=== PATIENT | female | born 1990 | race Caucasian/White ===

== ENCOUNTER → 2018-03-06 11:39 | Outpatient (CLI) | payer OTHER, SELFPAY ==
--- NOTE | 2018-03-06 | DI.CT.S_ITS ---
PROCEDURE: CT LE RT WO CON INDICATIONS: RIGHT ANKLE PAIN AND FRACTURE TECHNIQUE: Noncontrast 1-1.5 mm axial sections acquired from above the tibiotalar joint to the bottom of the calcaneus, with coronal and sagittal reformats. COMPARISON: None. FINDINGS: Image quality: Excellent. Comminuted fracture of the tibial plafond which extends to the posterior malleolus as well as the medial malleolus. There is articular surface incongruity with approximately 3 mm of cortical step-off and up to 2 mm of diastasis. Fracture line appears to extend to the distal tibiofibular syndesmosis however no definite widening of the syndesmotic interval. Lateral malleolus appears intact. The talar dome appears intact. There is circumferential hindfoot subcutaneous soft tissue swelling. Visualized tendons appear within normal limits. IMPRESSION: Severely comminuted distal tibial intra-articular fracture with extension to the medial and posterior malleolus. Incongruity of the distal tibial articular surface as above. Dictated by: Terry Bai M.D. on 03/06/2018 at 12:09 Approved by: Terry Bai M.D. on 03/06/2018 at 12:16
== END ==
PROVIDERS: PCP Orthopaedic Surgery Foot and Ankle Surgery; Visit Provider Orthopaedic Surgery Foot and Ankle Surgery
DX: S82.391A Other fracture of lower end of right tibia, initial encounter for closed fracture (principal)
CPT/HCPCS: 73700

== ENCOUNTER 2018-03-11 08:29 | Day surgery (SDC) | payer OTHER, SELFPAY ==
[2018-03-07 13:54] VITALS: BMI 22.2
[2018-03-11] VITALS (19 sets, daily range): BP systolic 94–148; BP diastolic 45–88; PULSE 76–104; RESP 12–26; TEMP 36.1–36.8; O2SAT 90–100; BMI 22.2
--- NOTE | 2018-03-11 08:38 | PM.PREOP ---
Pre-operative Note Interval Note Pre-op Check: History & Physical Reviewed by Physician H&P completed within 30 days and has changed as indicated here:: no changes, appropriate for scheduled surgery
[2018-03-11] MEDS: LACTATED RINGERS 1,000 ML 42 ML IV ×2 (09:07→15:02)
[2018-03-11] MEDS: fentaNYL 100 MCG/2 ML INJ 50 MCG IV ×3 (09:22→09:41)
[2018-03-11] MEDS: MIDAZOLAM 2 MG/2 ML VIAL IV ×4 (09:23→13:56)
[2018-03-11] MEDS: CEFAZOLIN 2 GM/100 ML FROZ.PIGGY IV (09:55)
--- NOTE | 2018-03-11 10:34 | SUR.OPER ---
Prone on padded OR bed, head in lateral position with pillow under chest for support, gel body rolls, gel pad under knees, bump under lower legs, toes free of pressure, arms secured on padded arm boards at <90 degrees abduction. Taped non-operable leg.
--- NOTE | 2018-03-11 12:00 | DI.RAD.S_ITS ---
PROCEDURE: XR ANKLE RT MIN 3V INDICATIONS: INNER OP ANKLE PICTURES TECHNIQUE: 13 views of the ankle were acquired. COMPARISON: None. FINDINGS: 13 spot fluoroscopic intraoperative views demonstrating plate and screw fixation of posterior and medial malleolar fractures. There is expected intraoperative alignment. Dictated by: Terry Bai M.D. on 03/11/2018 at 15:44 Approved by: Terry Bai M.D. on 03/11/2018 at 15:45
--- NOTE | 2018-03-11 12:36 | DI.RAD.S_ITS ---
PROCEDURE: XR ANKLE RT MIN 3V INDICATIONS: RIGHT ANKLE REPAIR TECHNIQUE: 4 views of the ankle were acquired. COMPARISON: [facility], CT, CT LE RT WO CON, 03/06/2018, 11:41. [facility] [place], CR, XR ANKLE 3 VIEWS WEIGHT BEARING LEFT, 03/06/2018, 9:54. FINDINGS: Bones: Plate and screw fixation of the posterior and medial malleolus. There is postoperative alignment No suspicious bony lesions. Soft tissues: No tibiotalar joint effusion. Achilles tendon appears normal. Skin shefali noted. IMPRESSION: Plate and screw fixation of the posterior and medial malleolar fractures in expected postoperative alignment. Dictated by: Terry Bai M.D. on 03/11/2018 at 14:50 Approved by: Terry Bai M.D. on 03/11/2018 at 14:55
[2018-03-11] MEDS: ACETAMINOPHEN IV 1,000 MG/100 ML VIAL 400 MG IV (12:41)
[2018-03-11] MEDS: BUPIVACAINE 0.25% W/ EPI 50 ML VIAL INJ (12:42)
--- NOTE | 2018-03-11 13:31 | P.OP_ITS ---
Operative Date/Time/Diagnoses - Date of procedure: 03/11/18 Time of procedure: 10:00 Pre-op diagnosis: 1. Right ankle Maisonneuve fracture closed S82.861a 2. Posterior malleolus fracture displaced, right S82.391a 3. Medial malleolus fracture, right, displaced S82. [id number] Post-op diagnosis: same Procedure & Clinicians Procedure: 1. Open reduction internal fixation right posterior malleolus fracture. CPT 99668 2. Open reduction internal fixation medial malleolus fracture, right CPT code 75427 3. Closed treatment proximal fibula fracture right CPT code 33229 This procedure was performed using the #22 modifier. Due to the need for prone positioning, dual posterior approaches, the surgery took approximately twice as long as a standard ankle fracture Same procedure as scheduled: Yes Indications: The patient is a 28-year-old female that sustained an injury at work on March 03. She stepped on a soccer ball and twisted her right ankle and heard a pop and was unable to weightbear. She was found to have a plantar flexion variant ankle fracture with a proximal fibular Maisonneuve component and a posterior malleolus fracture with posterior lateral and posterior medial fragments extending into the medial malleolus. There was posterior medial impaction and joint incongruity. The patient was indicated for operative treatment to restore joint congruity to reduce the risk of posttraumatic arthritis restore alignment and talar stability within the mortise. The risks and benefits of the procedure have been discussed with the patient even opportunity to ask questions. The risks of surgery include but are not limited to infection, malunion, nonunion, persistence of pain, damage to nerves and blood vessels, posttraumatic arthritis, DVT, PE, cardiopulmonary complications and . The patient expressed a thorough understanding of the risks and benefits of surgery and has elected to proceed. Consent was signed in the office today. Surgeon: [facility] [employer] Member: Lisa Mckeon'Brien Anesthesia Type: General and Peripheral nerve block Operative Notes Findings: Posterior lateral incision was made. An unstable posterior lateral posterior malleolus fracture was encountered. Posterior tib fib ligaments were intact at the lateral aspect of the fracture fragment. This was mobilized and booked open to expose the displaced posterior medial fragment as well as posterior medial joint comminution. Posterior medial approach was then made to better expose the medial aspect of the posterior medial fragment. The posterior medial fragment was mobilized the articular comminution was reduced and the posterior medial fragment was pinned in place and then fixed with a independent 4 0 cannulated lag screw with a washer. Posterior lateral fragment was then reduced and fixed with a 4 0 cannulated lag screw through a 3 hole 1/3 tubular plate and 3 5 cortical screws were then placed in antiglide fashion. Additional 3 hole 2 7 plate was placed at the medial apex of the posterior medial fragment in an antiglide fashion. Care was taken to avoid hardware prominence near the groove for the posterior tibialis tendon. The syndesmosis was stressed under live fluoroscopy with external rotation and a cotton test and was found to be stable after fixation of the posterior lateral posterior malleolus fragment. No additional fixation was placed. Closure Type: primary Specimen(s): none sent Implants & Drains: synthes small frag 3 hole 1/3 tubular plate, 3.5 cortical screws, 4.0 cannulated cancellous lag screws Synthes mini frag 2.7 3 hole plate, 2.7 cortical screws Applied: implant(s) Estimated Blood Loss (mL): 25 Blood products transfused: none Tourniquet time (min): 120 Procedure in detail: The patient has an unstable and displaced right ankle fracture and was indicated for surgical reduction and stabilization. The patient was counseled regarding the rationale for this and the risks of surgery. The risks include infection, bleeding, damage to nerves and blood vessels, or tendons, wound dehiscence, malunion, nonunion, persistence of pain, DVT, PE, inability to return to her desired level of function, hardware breakage or prominence, generalized dissatisfaction with the procedure, need for additional procedures, cardiopulmonary complications and . The patient expressed understanding of all the risks and elected to proceed. Consent was signed in the office. Patient understands that recovery is variable and may require up to a 1 year. The patient also understands that it is critical to strictly elevate the operative leg for the 1st 2 weeks after surgery to control swelling and pain. The patient was counseled that no way will be allowed on the surgical leg for approximately 6 weeks or until the patient is instructed that it is safe to initiate weight-bearing. The patient expressed full understanding of all these issues would like to proceed with surgery. The patient was additionally counseled on cessation of all nicotine products to promote bone and wound healing. DVT prophylaxis was discussed and will be completed with 325 mg aspirin starting postoperative day 1 x 6wks. Procedure in detail: In the preoperative holding area, the appropriate limb and sites were marked, consent was again reviewed with the patient and all questions answered. The patient received a preoperative block. The patient was brought to the operating room, placed on the operating table and given anesthetic. Following successful levels of anesthesia, the patient was appropriately padded, position secured to the table in the prone position. An SCD was placed on the contralateral leg. All bony prominences were well padded. A well-padded thigh tourniquet was placed. The surgical leg was then prepped and draped in the usual sterile fashion. A formal time-out procedure was completed confirming the patient, site and side of surgery and administration of appropriate preoperative antibiotics. All were in agreement. An Esmarch bandage was utilized to exsanguinate the limb and the tourniquet was raised on the thigh to 300 mmHg. Posterior lateral incision was made intermediate between the Achilles and the fibula appeared dissection was carefully taken down through the subcutaneous tissues. The sural nerve was visualized and protected throughout the case. The deep fascia was opened and the flexor hallucis longus exposed. The FHL was retracted medially and the peroneals laterally to expose the posterior fibula and tibia. The posterior lateral posterior malleolus fragment was identified. The posterior inferior tib-fib ligament were intact at the lateral aspect of the posterior lateral piece. The posterior lateral fragment was mobilized and open booked laterally to expose the joints and the posterior medial fragment. Posterior joint comminution was then visualized. The posterior medial fragment could not be completely mobilized from the posterior lateral approach therefore dragline oiler posterior medial approach was made this was a curvilinear incision over the posterior tibialis tendon just posterior to the medial malleolus. Care was taken opening flexor retinaculum and tendon sheath with tissue preserved for repair at the end of the case. Posterior tibialis tendon was retracted anterior out of the groove. The FDL and neurovascular bundle were retracted laterally to expose the posterior medial fracture lines. Then working through the dual posterior incisions the posterior medial comminution was disimpacted and the posterior medial fracture fragment was reduced. The posterior joint line was visualized well from the posterior medial approach. There were several small loose fragments of articular cartilage that were removed but the majority were able to be reduced. The posterior medial fragment was then pinned in place and the reduction was checked using C-arm. Next the posterior lateral fragment was reduced and pinned. Once we were satisfied with the reduction the posterior medial fragment was fixed in place utilizing a 4 0 cannulated lag screw with a washer. Care was taken to avoid the screw for the posterior tibial tendon as best as possible. Next the posterior lateral fragment was also reduced with a 4.0 cannulated lag screw this was placed through a 3 hole 1/3 tubular plate. And additional 3.5 cortical screws were placed in an antiglide fashion to buttress the fragment. Similarly a 2.7 3 hole plate was used medially at the medial malleolus apex in an antiglide fashion to buttress this fracture fragment. Intraoperative fluoroscopy was then utilized to evaluate the hardware placement confirmed there was no intra- articular violation and also no anterior cortex violation. Visual inspection of the joint yielded near anatomic reduction of the plafond. Attention was then turned to the syndesmosis. Cotton and external rotation stress test under fluoroscopy and visual inspection in the operating room noted stability of the syndesmosis after fixation of the posterior malleolar fragments , therefore no additional transsyndesmotic screws were placed. The tourniquet was let down after 2 hr and hemostasis achieved. The wounds were irrigated with copious irrigation and closed in a layered fashion with 2 O Vicryl deep in the tendon sheath. 4-0 Monocryl subcutaneous suture and shefali in the skin. Xeroform gauze and a sterile bulky dressing and U splint were then applied. Final intraoperative plain x-rays were obtained confirming alignment and reduction and appropriate hardware placement. The patient was then woken from anesthesia and taken to the recovery room in good condition. There were no immediate complications from this procedure. All counts were correct. Syndesmosis stabilization: Attention was then turned to the syndesmosis. The syndesmosis was stressed under fluoroscopy with external rotation and fibular manipulation using the bone hook. It was felt the syndesmosis opened. Therefore the syndesmosis was formally opened and reduced and then stabilized with [1 or 2] bicortical 3.5 mm syndesmotic screws. Stability was confirmed under fluoro. The wounds were irrigated. We were quite satisfied with result clinically and radiographically. The tourniquet was released, and hemostasis achieved. The deep tissue was closed with 2 O Vicryl. Subcutaneous tissue was closed with 4 0 Monocryl in the skin with 3 O nylon. A sterile bulky dressing and knee splint were applied. All counts were correct. The patient was then awoken and transported to recovery room in good condition. There no known immediate complications from this procedure. Postoperative plan: Patient will be nonweightbearing on the surgical leg. They will start taking [] for DVT prophylaxis on postop day 1, for[]. The patient will follow up in 1 week for wound check and change to a cast. They will follow up 2 weeks later for xr, cast removal and suture removal. At this time we will go into a boot start early range of motion will continue to be nonweightbearing. Follow-up in 4 weeks for repeat x-ray. Start weight-bearing progressively between 6 and 12 weeks. Complications: none Condition: stable Disposition: same day surgery Plan for aftercare: The patient will be nonweightbearing on her right lower extremity and will follow up in my clinic in 10-14 days for transition to a boot. And for staple removal. Patient will be nonweightbearing for a total of 6 weeks but encouraged to move her toes early and her ankle at 2 weeks. The patient will take (1) 325 mg aspirin daily for 6 weeks for blood clot prophylaxis.
[2018-03-11] MEDS: MEPERIDINE 50 MG/ML IM (13:49)
--- NOTE | 2018-03-11 13:56 | SUR.PHASEI ---
Midazolam given at 1355 per order of 1mg by Timur Morgan. Concentration available is 2mg/ml not 5ml/ml so 0.5 ml given for 1mg due to agitation/anxiety response seen post op.
--- NOTE | 2018-03-11 15:17 | SUR.PHASEII ---
Able to use criutches to transfer. Remains a bit emotional on discharge. Still with no movement of toes and says her ower leg is numb.
== END 2018-03-11 15:05 | disposition home or self-care (01) ==
PROVIDERS: PCP Nurse Practitioner Family; Visit Provider Orthopaedic Surgery Foot and Ankle Surgery
PROC: 0SSF04Z Reposition Right Ankle Joint with Internal Fixation Device, Open Approach (ICD-10-PCS; CPT 27814; principal; 2018-03-11 07:45)
DX: S82.862A Displaced Maisonneuve's fracture of left leg, initial encounter for closed fracture (principal); S82.391A Other fracture of lower end of right tibia, initial encounter for closed fracture; W21.81XA Striking against or struck by football helmet, initial encounter
CPT/HCPCS: 27814; 64450; 73610; 76001; J0131; J0690; J1100; J1885; J2175; J2250; J2405; J2704; J2795; J3010